=== PATIENT | male | born 1980 | race Caucasian/White ===

== ENCOUNTER 2019-06-02 09:36 | Day surgery (SDC) | payer BC ==
[2019-06-02] MEDS ORDERED: LIDOCAINE 2% MDV (20MG/ML) 20ML VIAL IV ONE (09:37)
[2019-06-02] MEDS ORDERED: EPHEDRINE SULFATE 50 MG/ML ML IV ONE (09:37)
[2019-06-02] MEDS ORDERED: PROPOFOL 10 MG/ML VIAL IV ONE (09:37)
--- NOTE | 2019-06-03 10:52 | Operative Note ---
OPERATION: 1. ESOPHAGOGASTRODUODENOSCOPY with biopsy. 2. COLONOSCOPY with biopsy. PREOPERATIVE DIAGNOSIS: Abdominal pain, diarrhea, and weight loss. POSTOPERATIVE DIAGNOSES: 1. 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 2. Gastritis. 3. Normal colon, rule out microscopic colitis, particularly lymphocytic colitis. PROCEDURE: After informed consent was obtained from the patient, he was placed in the left lateral decubitus position in the endoscopy suite, sedated and monitored by the department of anesthesia. A well-lubricated [id number] gastroscope was placed in the posterior oropharynx under direct visualization and passed to the proximal esophagus. The endoscope was advanced through the proximal, mid, and distal esophagus. The GE junction and esophagus were unremarkable. The gastric body and the antrum were inspected revealing mild erythema in the antrum. The pylorus, duodenal bulb and sweep were then inspected. There were severe atrophic changes noted throughout the bulb and sweep consistent with severe celiac. Random biopsies were obtained. Gastric biopsies were obtained. J- turn views of the proximal stomach were unrevealing. The endoscope was straightened and retracted from the patient with no new findings noted. Digital rectal exam was unremarkable. A well-lubricated [id number] colonoscope was inserted into the rectum and advanced to the cecum. Preparation quality was excellent. The cecum, cecal bulb, ileocecal valve, appendiceal orifice, terminal ileum, ascending colon, transverse colon, descending colon, sigmoid colon, and rectum were free of inflammatory changes, mass lesions, or polyps. J-turn views of the anorectum were unremarkable. The endoscope was straightened, the rectal ampulla deflated, and the endoscope was removed. RECOMMENDATIONS: The patient will await the results of tissue histology but at this point, we will order celiac antibodies as a baseline. It is highly likely he will need to be on a gluten-free diet. Further recommendations will be forthcoming once pathology results are available. As always, thank you for allowing me to participate in the healthcare of your patients. ROOPA
== END 2019-06-02 10:50 | disposition home or self-care (01) ==
LOC: HOP 09:36
PROVIDERS: ATTEND Internal Medicine Gastroenterology
DX: K90.0 Celiac disease (principal); K29.60 Other gastritis without bleeding; Z87.891 Personal history of nicotine dependence